=== PATIENT | male | born 1965 | race Caucasian/White ===

== ENCOUNTER 2017-06-01 06:40 | Day surgery (SDC) | payer OTHER ==
[2017-06-01] MEDS ORDERED: GELATIN SIZE 100 SPONGE (07:41)
[2017-06-01] MEDS ORDERED: HEPARIN 1000 UNITS/ML 10 ML INJ (07:42)
[2017-06-01] MEDS ORDERED: LIDOCAINE 2% (SDV) 5 ML INJ (07:58)
[2017-06-01] MEDS ORDERED: ROCURONIUM 50 MG INJ (07:58)
[2017-06-01] MEDS ORDERED: PROPOFOL 20 ML (07:58)
[2017-06-01] MEDS ORDERED: NEOSTIGMINE 3 MG/3 ML SYRINGE ×2 (07:58→09:56)
[2017-06-01] MEDS ORDERED: GLYCOPYRROLATE 0.4 MG INJ ×3 (07:58→09:55)
[2017-06-01] MEDS ORDERED: SUCCINYLCHOLINE CHLORIDE 100 MG/5 ML SYG IV (07:58)
[2017-06-01] MEDS ORDERED: CYCLOBENZAPRINE 10 MG TAB PO (08:00)
[2017-06-01] MEDS ORDERED: ACETAMINOPHEN 325 MG TAB PO (08:00)
[2017-06-01] MEDS ORDERED: NALOXONE (0.4 MG/ML) INJ IV (08:00)
[2017-06-01] MEDS ORDERED: DIPHENHYDRAMINE 50 MG INJ IV ×2 (08:00→11:30)
[2017-06-01] MEDS ORDERED: HYDROmorphONE 0.5 MG/0.5 ML SYG IV (08:00)
[2017-06-01] MEDS ORDERED: HYDROCODONE/APAP (5/325) TAB PO ×2 (08:00)
[2017-06-01] MEDS ORDERED: DIPHENHYDRAMINE 25 MG CAP PO (08:00)
[2017-06-01] MEDS ORDERED: ONDANSETRON 4 MG INJ IV ×2 (08:00→11:30)
[2017-06-01] MEDS ORDERED: PROCHLORPERAZINE 10 MG TAB PO (08:00)
[2017-06-01] MEDS ORDERED: MEPERIDINE 100 MG INJ (08:01)
[2017-06-01] MEDS ORDERED: MEPERIDINE 100 MG INJ IV (08:30)
[2017-06-01] MEDS ORDERED: CEFAZOLIN 1 GM INJ (09:04)
[2017-06-01] MEDS ORDERED: LABETALOL HCL 20MG INJ (09:04)
[2017-06-01] MEDS: POLYMYXIN/BACITRACIN 1L IRRIG (09:09)
[2017-06-01] MEDS: LIDOCAINE 1%/EPI 30 ML INJ (09:09)
[2017-06-01] MEDS: THROMBIN 5000 UNIT VIAL (10:21)
[2017-06-01] MEDS: CA CHLORIDE 10% 10 ML SYRINGE (10:21)
[2017-06-01] MEDS: CEFAZOLIN 1 GM/50 ML (PMX) 50 ML IVPB (10:56)
[2017-06-01] MEDS ORDERED: HYDROmorphONE (0.2 MG/ML) 10ML SYG IV ×3 (11:13→11:30)
[2017-06-01] MEDS: HYDROmorphONE (0.2 MG/ML) 10ML SYG IV (11:28)
[2017-06-01] MEDS ORDERED: MEPERIDINE 25 MG INJ IV (11:30)
[2017-06-01] MEDS ORDERED: LABETALOL HCL 20MG INJ IV (11:30)
[2017-06-01] MEDS ORDERED: hydrALAzine 20 MG INJ IV (11:30)
[2017-06-01] MEDS ORDERED: MIDAZOLAM 1 MG/ML 2 ML INJ IV (11:30)
[2017-06-01] MEDS ORDERED: OXYCODONE/ACETAMINOPHEN (5/325) TAB PO ×2 (11:30)
[2017-06-01] MEDS ORDERED: FENTAnyl 50 MCG/ML VIAL IV ×3 (11:30)
[2017-06-01] MEDS ORDERED: METOCLOPRAMIDE 10 MG INJ IV (11:30)
[2017-06-01] MEDS ORDERED: EPHEDrine SULFATE 50 MG/5 ML SYG IV (11:30)
== END 2017-06-01 12:15 | disposition home or self-care (01) ==
LOC: SDS 06:40
DX: M48.02 Spinal stenosis, cervical region (principal)
CPT/HCPCS: 20939; 72040; 86850; 86900; 86901; 86999